=== PATIENT | female | born 2000 ===

== ENCOUNTER 2024-01-06 08:02 | Outpatient (REF) | payer OTHER, SELFPAY ==
--- NOTE | ~2024-01-06 | US_ITS ---
EXAMINATION: US PELVIS CLINICAL INFORMATION: Irregular bleeding. IUD. COMPARISON: None available. TECHNIQUE: Ultrasound of the pelvis is performed using both transabdominal and transvaginal transducers along with Doppler. Transvaginal imaging is performed due to inadequate visualization transabdominally. FINDINGS: Anteverted uterus measuring 8.8 x 3.4 x 4.7 cm. Endometrium measures 0.4 cm in thickness. IUD in satisfactory positioning within the endometrial canal. Ovaries are normal in morphology with preserved flow at the moment of this examination. The right ovary measures 3.2 x 2.6 x 2.6 cm, 11 mL. The left ovary measures 2.3 x 2.5 x 2.1 cm, 6.4 mL. No adnexal mass. No free fluid. US/US pelvic and transvaginal IMPRESSION: 1. IUD in satisfactory positioning within the endometrial canal. 2. No acute sonographic abnormalities.
== END 2024-01-06 08:03 | disposition home or self-care (01) ==
LOC: HO.UMASIMG 08:02
PROVIDERS: Visit Provider Nurse Practitioner Women's Health
DX: N92.6 Irregular menstruation, unspecified (principal)
CPT/HCPCS: 76830; 76856